=== PATIENT | male | born 1960 | race Caucasian/White ===

== ENCOUNTER 2017-05-06 21:41 | Emergency (ER) | payer BC ==
[~2017-05-06] VITALS: Ht 182.9 cm; Wt 81.6 kg
[2017-05-06 21:51] VITALS: BP 126/67
--- NOTE | 2017-05-06 22:55 | PHYS DOC ---
Past Medical History Past Medical History: Hypertension Past Surgical History: Other Additional Past Surgical Histo: BILAT LEG Alcohol Use: None Drug Use: None Adult General Chief Complaint Chief Complaint: FOREIGN BODY HPI HPI Patient is a 56 year old male who presents with possible swallowed foreign body. The patient states just prior to arrival he was eating [employer] bear claw ice cream, bit down on a hard non-food object. He spit out a broken circular object made of glass or hard plastic. He is concerned that he may have swallowed part of the object. He denies shortness of breath, mouth or throat pain, abdominal pain, vomiting, diarrhea. Review of Systems Review of Systems Constitutional: Denies fever or chills HENT: Denies nasal congestion or sore throat Respiratory: Denies cough or shortness of breath Cardiovascular: Denies chest pain GI: Denies abdominal pain, nausea, vomiting, or diarrhea Musculoskeletal: Denies back pain or joint pain Integument: Denies rash Neurologic: Denies headache Allergies Allergies Allergies Coded Allergies Type Severity Reaction Last Updated Verified adhesive tape Allergy Unknown 05/06/17 Yes Physical Exam Physical Exam Constitutional: Well developed, well nourished, no acute distress, non-toxic appearance. HENT: Normocephalic, atraumatic, bilateral external ears normal, oropharynx moist, nose normal. airway patent, no foreign body in oropharynx Eyes: conjunctiva normal, no discharge. Neck: supple, no stridor. Cardiovascular: RRR, no murmurs, no edema. Lungs & Thorax: LCTAB, no wheezing, no respiratory distress. Abdomen: soft, nontender, nondistended. Skin: Warm, dry, no erythema, no rash. Back: No tenderness. Extremities: No tenderness Neurologic: Alert and oriented X 3 Current Patient Data Vital Signs Vital Signs Date Time Temp Pulse Resp B/P (MAP) Pulse Ox O2 Delivery O2 Flow Rate FiO2 05/06/17 21:51 98.0 81 20 95 Room Air 98.0 EKG EKG [] Radiology/Procedures Radiology/Procedures CXR & KUB: interpreted by me: no radio opaque foreign body, no free air, no infiltrate, no air fluid levels. the object brought by the patient is above the marker & does appear to be radio opaque Course & Med Decision Making Course & Med Decision Making Pertinent Labs and Imaging studies reviewed. (See chart for details) The patient presents with possible ingested foreign body. He is well appearing , not certain that he swallowed the object. He brought in the 2 plastic pieces , appears to be some sort of glass or hard plastic gear, chunky clear brown in color, appears to fit together without any missing pieces. At his request we did obtain CXR & KUB which shows no foreign body. The object brought by the patient is radioopaque so would likely appear. We discussed that ingestion likely only significant if very sharp or long, which seems unlikely given the object he brought in with him. No specific recommendations & he is already in contact with the company regarding the incident. Follow up with primary care. Discharged home in stable condition. [] Dragon Disclaimer Dragon Disclaimer This electronic medical record was generated, in whole or in part, using a voice recognition dictation system. Departure Departure Impression: Primary Impression: Foreign body accidentally entering opening of body cavity Disposition: HOME, SELF-CARE Condition: STABLE Referrals: GAGE HANCOCK MD (PCP) Patient Instructions: Swallowed Foreign Body, Adult Additional Instructions: You were seen in the emergency department today for possible swallowed object. X -ray did not show any abnormal findings. No specific recommendations other than to follow-up with the company. Return for severe abdominal pain, blood in stools , any otherwise worsening condition. VIRAL YEH MD May 06, 2017 22:55
--- NOTE | 2017-05-07 07:27 | RAD ---
PA view CXR: Clinical indications: Possible swallowed foreign body. Comparison: December 25, 2010. Findings: No radiopaque foreign body is evident. There is mild calcified atheromatous disease of the left carotid artery. No acute lung infiltrate or pleural effusion or pulmonary edema or lung mass or pneumothorax is seen. The heart size, pulmonary vasculature, mediastinum and both yvette are unremarkable. Old healed posterior lateral right eighth rib fracture is seen. Impression: No acute radiographic abnormality is seen.
--- NOTE | 2017-05-07 07:29 | RAD ---
KUB History: Possible swallowed foreign body. Findings: No obstructive bowel pattern is evident. Mild fecal retention is seen throughout the colon. There is a metallic piece of jewelry seen within the right lateral mid abdominal wall which is outside of the bowel lateral to the ascending colon. Mild scoliosis is seen. IMPRESSION: Diffuse metallic jewelry is seen within the right lateral mid abdominal wall. No radiopaque foreign body is seen within the bowel.
== END 2017-05-06 23:01 | disposition home or self-care (01) ==
LOC: ER 21:41
DX: T18.9XXA Foreign body of alimentary tract, part unspecified, initial encounter (principal); I10 Essential (primary) hypertension; Z88.8 Allergy status to other drugs, medicaments and biological substances; X58.XXXA Exposure to other specified factors, initial encounter; Y93.89 Activity, other specified; Y92.89 Other specified places as the place of occurrence of the external cause; Y99.8 Other external cause status
CPT/HCPCS: 71010; 74000; 99284-25

== ENCOUNTER 2019-11-06 22:13 | Emergency (ER) | payer BC ==
[~2019-11-06] VITALS: Ht 180.3 cm; Wt 81.6 kg
[2019-11-06] MEDS ORDERED: IPRATRPIUM/ALBUTEROL 0.5/2.5MG 3 ML NEBU. NEB ONE (23:00)
--- NOTE | 2019-11-06 23:05 | PHYS DOC ---
Past Medical History Past Medical History: Hypertension Past Surgical History: Other Additional Past Surgical Histo: BILAT LEG Additional Information: PT STATES HE SMOKES 2 PACKS PER DAY X 40 YEARS Alcohol Use: None Drug Use: None Adult General Chief Complaint Chief Complaint: SHORTNESS OF BREATH HPI HPI 59-year-old male presents to the emergency Department complaints of shortness of breath, chest pain described as a pressure, radiation to his back. He denies any fever, nausea, vomiting has had productive cough. Patient smokes tobacco. He states his symptoms started on Thursday and progressively worsened. Movements make his pain worse. He states he's having difficulty lying flat. Patient denies any headache, visual change, abdominal pain. He denies cardiac/lung disease Review of Systems Review of Systems Constitutional: Denies fever or chills [] HENT: +nasal congestion Respiratory: + cough/SOB Cardiovascular: No additional information not addressed in HPI [] GI: Denies abdominal pain, nausea, vomiting, bloody stools or diarrhea [] : Denies dysuria or hematuria [] Musculoskeletal: back pain Integument: Denies rash or skin lesions [] Neurologic: Denies headache, focal weakness or sensory changes [] All other systems were reviewed and found to be within normal limits, except as documented in this note. Current Medications Current Medications Current Medications Medications (Trade) Dose Ordered Sig/[facility] Start Time Stop Time Status Last Admin Dose Admin Albuterol/ Ipratropium (Duoneb) 3 ml 1X ONCE 11/06/19 23:00 11/06/19 23:07 DC 11/06/19 23:04 3 ML Info (CONTRAST GIVEN -- Rx MONITORING) 1 each PRN DAILY PRN 11/07/19 00:15 11/07/19 01:05 DC Iohexol (Omnipaque 350 Mg/ml) 100 ml 1X ONCE 11/07/19 00:15 11/07/19 00:16 DC 11/07/19 00:18 100 ML Ketorolac Tromethamine (Toradol 30mg Vial) 30 mg 1X ONCE 11/07/19 00:00 11/07/19 00:01 DC 11/06/19 23:58 30 MG Sodium Chloride 1,000 ml @ 1,000 mls/hr Q1H 11/06/19 23:15 11/07/19 00:14 DC 11/06/19 23:15 1,000 MLS/HR Allergies Allergies Allergies Coded Allergies Type Severity Reaction Last Updated Verified adhesive tape Allergy Unknown 05/06/17 Yes Physical Exam Physical Exam Constitutional: Well developed, well nourished, mild distress [] HENT: Normocephalic, atraumatic, bilateral external ears normal, oropharynx moist, no oral exudates, nose normal. [] Eyes: PERRLA, EOMI, conjunctiva normal, no discharge. [] Cardiovascular:Heart rate regular rhythm, no murmur [] Lungs & Thorax: coarse BS bilaterally, no wheeze Abdomen: Bowel sounds normal, soft, no tenderness, no masses, no pulsatile masses. [] Skin: Warm, dry, no erythema, no rash. [] Back: TTP between shoulder blades Extremities: No tenderness, no edema. [] Neurologic: Alert and oriented X 3, no focal deficits noted. [] Psychologic: Affect normal, judgement normal, mood normal. [] Current Patient Data Vital Signs Vital Signs Date Time Temp Pulse Resp B/P (MAP) Pulse Ox O2 Delivery O2 Flow Rate FiO2 11/06/19 23:52 89 24 144/81 (102) 99 Room Air 11/06/19 23:06 2.0 11/06/19 22:20 97.6 97.6 Lab Values Laboratory Tests Test 11/06/19 22:35 11/06/19 23:04 White Blood Count 11.1 x10^3/uL (4.0-11.0) H Red Blood Count 4.07 x10^6/uL (4.30-5.70) L Hemoglobin 13.9 g/dL (13.0-17.5) Hematocrit 40.3 % (39.0-53.0) Mean Corpuscular Volume 99 fL (79-100) Mean Corpuscular Hemoglobin 34 pg (25-35) Mean Corpuscular Hemoglobin Concent 35 g/dL (31-37) Red Cell Distribution Width 13.4 % (11.5-14.5) Platelet Count 299 x10^3/uL (140-400) Neutrophils (%) (Auto) 64 % (31-73) Lymphocytes (%) (Auto) 21 % (24-48) L Monocytes (%) (Auto) 14 % (0-9) H Eosinophils (%) (Auto) 1 % (0-3) Basophils (%) (Auto) 1 % (0-3) Neutrophils # (Auto) 7.1 x10^3/uL (1.8-7.7) Lymphocytes # (Auto) 2.3 x10^3/uL (1.0-4.8) Monocytes # (Auto) 1.5 x10^3/uL (0.0-1.1) H Eosinophils # (Auto) 0.1 x10^3/uL (0.0-0.7) Basophils # (Auto) 0.1 x10^3/uL (0.0-0.2) D-Dimer (Ana) 0.36 ug/mlFEU (0.00-0.50) Sodium Level 141 mmol/L (136-145) Potassium Level 4.0 mmol/L (3.5-5.1) Chloride Level 102 mmol/L (98-107) Carbon Dioxide Level 30 mmol/L (21-32) Anion Gap 9 (6-14) Blood Urea Nitrogen 21 mg/dL (8-26) Creatinine 0.9 mg/dL (0.7-1.3) Estimated GFR (Cockcroft-Gault) 86.1 BUN/Creatinine Ratio 23 (6-20) H Glucose Level 115 mg/dL (70-99) H Calcium Level 9.2 mg/dL (8.5-10.1) Total Bilirubin 0.7 mg/dL (0.2-1.0) Aspartate Amino Transferase (AST) 14 U/L (15-37) L Alanine Aminotransferase (ALT) 13 U/L (16-63) L Alkaline Phosphatase 59 U/L (46-116) Troponin I Quantitative < 0.017 ng/mL (0.000-0.055) QT-Okq-I-Type Natriuretic Peptide 149 pg/mL (0-124) H Total Protein 7.4 g/dL (6.4-8.2) Albumin 3.7 g/dL (3.4-5.0) Albumin/Globulin Ratio 1.0 (1.0-1.7) Influenza Type A Antigen Negative (NEGATIVE) Influenza Type B Antigen Negative (NEGATIVE) Laboratory Tests 11/06/19 22:35 Laboratory Tests 11/06/19 22:35 EKG EKG EKG with RBBB, normal axis, no evidence of STEMI, NSR 94 2232[] Radiology/Procedures Radiology/Procedures [facility] [address] [place] [address] IMAGING REPORT Signed PATIENT: IRWIN RAO ACCOUNT: [id number] : 1960 LOCATION: ER AGE: 59 SEX: M EXAM STATUS: DEP ER ORD. PHYSICIAN: ENIO HOFF MD REASON: chest pain/sob radiation between shoulder blades, ddimer negative PROCEDURE: CT ANGIOGRAPHY CHEST Study: CT CHEST WITH CONTRAST - PULMONARY ANGIOGRAM History: Chest pain and shortness of breath. Comparison: None. Technique: Helical CT of the chest performed after the administration of 100 cc Omnipaque 350 intravenous contrast and timed for angiographic evaluation of the pulmonary arteries per PE protocol. Coronal and sagittal 3D MIP reformations were obtained. One or more of the following individualized dose reduction techniques were utilized for this examination: 1. Automated exposure control 2. Adjustment of the mA and/or kV according to patient size 3. Use of iterative reconstruction technique. Findings: No acute or chronic pulmonary embolism. Normal main pulmonary artery caliber. No CT findings of right heart strain. Calcific coronary artery disease. Scattered vascular calcifications. No aortic dissection or aneurysm. No pathologically enlarged mediastinal or hilar lymph nodes. Scattered small lung cysts mainly at the upper lobes. Patchy groundglass opacities at the right more so than left lung bases. Mild volume loss. Bronchial wall thickening most pronounced at the lower lungs. Small amount of frothy debris within the segmental airways to the right lower lobe and there is intermittent opacification of a few small airways to both lower lobes. A few millimetric groundglass nodules are noted such as at the right upper lung on image 38 series 4 and within the right middle lobe on image 94 series 4. Exophytic right renal cyst, image 175 series 4. Incompletely evaluated nodule along the anterior aspect of the lower left kidney, image 183 series 4 measuring 1.6 cm. Appear to be diverticuli involving the ascending colon without diverticulitis. No acute osseous abnormality. Scattered degenerative changes. IMPRESSION: 1. No pulmonary embolism. 2. Groundglass opacities at both lung bases, more pronounced on the right, in the setting of a small amount of frothy debris within the airways to the right lower lobe, lower lung bronchial wall thickening and intermittent opacification of the small airways to the lower lobes. Aspiration pneumonitis is a consideration. A multifocal atypical pneumonia is a possibility as well though seemingly less likely. 3. A few punctate ground glass nodules seen in both lungs as well as small lung cysts. This could represent a manifestation of tobacco use. These nodules do not meet size criteria for dedicated follow-up however if there are risk factors for lung malignancy, optional CT in 12 months could be performed. 4. Nodular focus along the anterior margin of the lower left kidney that is not fully characterize. This measures approximate 1.6 cm and may represent a exophytic renal cyst however consider nonemergent renal sonography to better characterize. 5. Additional chronic findings as above to include calcific coronary artery disease. Electronically signed by: CAROLINE MUNIZ MD (11/07/2019 2:58 AM) [facility] DICTATED and SIGNED BY: CAROLINE MUNIZ MD DATE: 11/07/19 0258 [] Course & Med Decision Making Course & Med Decision Making Pertinent Labs and Imaging studies reviewed. (See chart for details) [] 59-year-old male presents to the emergency Department complaints of shortness of breath, chest pain described as a pressure, radiation to his back. He denies any fever, nausea, vomiting has had productive cough. Patient smokes tobacco. He states his symptoms started on Thursday and progressively worsened. Movements make his pain worse. He states he's having difficulty lying flat. Patient denies any headache, visual change, abdominal pain. He denies cardiac/lung disease Dragon Disclaimer Dragon Disclaimer This electronic medical record was generated, in whole or in part, using a voice recognition dictation system. Departure Departure Impression: Primary Impression: Pneumonia Additional Impression: Tobacco dependence Disposition: HOME, SELF-CARE Condition: STABLE Referrals: GAGE HANCOCK MD (PCP) Patient Instructions: Pneumonia, Adult, [id number] Additional Instructions: Recommend follow up with PCP 3 - 5 days Return to the ER with worsening symptoms, intractable pain, fever, altered mental status Tylenol/Motrin as needed for pain Take antibiotics as directed Scripts Amoxicillin/Potassium Clav (AUGMENTIN 875-125 TABLET) 1 Each Tablet 1 TAB PO Q12HR, #20 TAB Prov: ENIO HOFF MD 11/07/19 Problem Qualifiers Primary Impression: Pneumonia Pneumonia type: due to unspecified organism Laterality: bilateral Lung location: lower lobe of lung Qualified Codes: J18.9 - Pneumonia, unspecified organism ENIO HOFF MD Nov 06, 2019 23:05
[2019-11-06 23:10] LABS: BASO # 0.1 x10^3/uL (0.0-0.2); BASO % 1 % (0-3); EOS # 0.1 x10^3/uL (0.0-0.7); EOS % 1 % (0-3); HEMATOCRIT 40.3 % (39.0-53.0); HEMOGLOBIN 13.9 g/dL (13.0-17.5); LYMPH # 2.3 x10^3/uL (1.0-4.8); LYMPH % 21 % (24-48); MEAN CORPUSCULAR HEMOGLOBIN 34 pg (25-35); MEAN CORPUSCULAR HGB CONC 35 g/dL (31-37); MEAN CORPUSCULAR VOLUME 99 fL (79-100); MONO # 1.5 x10^3/uL (0.0-1.1); MONO % 14 % (0-9); NEUT # 7.1 x10^3/uL (1.8-7.7); NEUT % 64 % (31-73); PLATELET COUNT 299 x10^3/uL (140-400); RED BLOOD COUNT 4.07 x10^6/uL (4.30-5.70); RED CELL DISTRIBUTION WIDTH 13.4 % (11.5-14.5); WHITE BLOOD COUNT 11.1 x10^3/uL (4.0-11.0)
[2019-11-06] MEDS ORDERED: IV NORMAL SALINE 1000ML BAG 1,000 ML IV SCH (23:15)
[2019-11-06 23:25] LABS: CALCIUM 9.2 mg/dL (8.5-10.1); CREATININE 0.9 mg/dL (0.7-1.3); GFR 86.1
[2019-11-06 23:29] LABS: INFLUENZA A PATIENT NEGATIVE (NEGATIVE); INFLUENZA B PATIENT NEGATIVE (NEGATIVE)
[2019-11-06 23:31] LABS: ALBUMIN 3.7 g/dL (3.4-5.0); TOTAL BILIRUBIN 0.7 mg/dL (0.2-1.0); TOTAL PROTEIN 7.4 g/dL (6.4-8.2)
[2019-11-06 23:52] VITALS: BP 144/81
[2019-11-07] MEDS ORDERED: KETOROLAC 30 MG/ML VIAL. IVP ONE
[2019-11-07] MEDS ORDERED: CONTRAST GIVEN. MC PRN (00:15)
[2019-11-07] MEDS ORDERED: IOHEXOL 350 MG/ML 100 ML VIAL. IV ONE (00:15)
[2019-11-07] MEDS ORDERED: AMOX1TAB61 PO (00:46)
--- NOTE | 2019-11-07 02:47 | RAD ---
Study: PORTABLE CHEST 1V Indication: Chest pain. Shortness of breath. Comparison: 05/06/2017 Findings: No lobar consolidation, pleural effusion or pneumothorax. Faint increased attenuation at both lung bases. The cardiomediastinal silhouette is within normal limits for size. Unremarkable yvette. Vascular calcifications. Impression: Faint haziness of both lung bases which could represent atelectasis though an atypical infectious process is not excluded. No lobar infiltrate. Electronically signed by: CAROLINE MUNIZ MD (11/07/2019 2:45 AM) [facility]
--- NOTE | 2019-11-07 03:01 | RAD ---
Study: CT CHEST WITH CONTRAST - PULMONARY ANGIOGRAM History: Chest pain and shortness of breath. Comparison: None. Technique: Helical CT of the chest performed after the administration of 100 cc Omnipaque 350 intravenous contrast and timed for angiographic evaluation of the pulmonary arteries per PE protocol. Coronal and sagittal 3D MIP reformations were obtained. One or more of the following individualized dose reduction techniques were utilized for this examination: 1. Automated exposure control 2. Adjustment of the mA and/or kV according to patient size 3. Use of iterative reconstruction technique. Findings: No acute or chronic pulmonary embolism. Normal main pulmonary artery caliber. No CT findings of right heart strain. Calcific coronary artery disease. Scattered vascular calcifications. No aortic dissection or aneurysm. No pathologically enlarged mediastinal or hilar lymph nodes. Scattered small lung cysts mainly at the upper lobes. Patchy groundglass opacities at the right more so than left lung bases. Mild volume loss. Bronchial wall thickening most pronounced at the lower lungs. Small amount of frothy debris within the segmental airways to the right lower lobe and there is intermittent opacification of a few small airways to both lower lobes. A few millimetric groundglass nodules are noted such as at the right upper lung on image 38 series 4 and within the right middle lobe on image 94 series 4. Exophytic right renal cyst, image 175 series 4. Incompletely evaluated nodule along the anterior aspect of the lower left kidney, image 183 series 4 measuring 1.6 cm. Appear to be diverticuli involving the ascending colon without diverticulitis. No acute osseous abnormality. Scattered degenerative changes. IMPRESSION: 1. No pulmonary embolism. 2. Groundglass opacities at both lung bases, more pronounced on the right, in the setting of a small amount of frothy debris within the airways to the right lower lobe, lower lung bronchial wall thickening and intermittent opacification of the small airways to the lower lobes. Aspiration pneumonitis is a consideration. A multifocal atypical pneumonia is a possibility as well though seemingly less likely. 3. A few punctate ground glass nodules seen in both lungs as well as small lung cysts. This could represent a manifestation of tobacco use. These nodules do not meet size criteria for dedicated follow-up however if there are risk factors for lung malignancy, optional CT in 12 months could be performed. 4. Nodular focus along the anterior margin of the lower left kidney that is not fully characterize. This measures approximate 1.6 cm and may represent a exophytic renal cyst however consider nonemergent renal sonography to better characterize. 5. Additional chronic findings as above to include calcific coronary artery disease. Electronically signed by: CAROLINE MUNIZ MD (11/07/2019 2:58 AM) [facility]
--- NOTE | 2019-11-07 08:36 | EKG ---
[facility] [address] [place] [address] Test Date: 2019-11-06 Test Time: 22:32:47 Pat Name: JOSEPH RAO Department: Room: Gender: M [employer]: : 1960 Requested By: ENIO HOFF Order Number: [id number] Reading MD: Measurements Intervals [place] Rate: 94 P: -92 WA: 150 QRS: 59 QRSD: 146 T: 45 QT: 382 QTc: 483 Interpretive Statements SUPRAVENTRICULAR RHYTHM VENTRICULAR PREMATURE COMPLEX(ES) LEFT ATRIAL ABNORMALITY RIGHT BUNDLE BRANCH BLOCK RVH WITH REPOLARIZATION ABNORMALITY QRS(T) CONTOUR ABNORMALITY CANNOT RULE OUT ANTEROSEPTAL MYOCARDIAL DAMAGE ABNORMAL ECG No previous ECG available for comparison
== END 2019-11-07 01:00 | disposition home or self-care (01) ==
LOC: ER 22:13
DX: J18.9 Pneumonia, unspecified organism (principal); R07.89 Other chest pain; F17.200 Nicotine dependence, unspecified, uncomplicated; I10 Essential (primary) hypertension; Z98.890 Other specified postprocedural states; Z91.048 Other nonmedicinal substance allergy status
CPT/HCPCS: 36415; 71045; 71275; 80053; 83880; 84484; 85025; 85379; 87804; 93005; 94640; 96374; 99285; J1885; J7030; J7620; Q9967